=== PATIENT | male | born 1995 | race Caucasian/White ===

== ENCOUNTER 2020-10-31 19:11 | Emergency (ER) | payer OTHER, SELFPAY ==
[2020-10-31] MEDS ORDERED: Lidocaine 2% 20 ml MDV ONE (19:43)
[2020-10-31] MEDS ORDERED: Boostrix 0.5 ML (Tdap) VIAL ONE (19:43)
[2020-10-31] MEDS ORDERED: Clindamycin 150 MG CAP ONE (20:35)
== END 2020-10-31 20:43 | disposition home or self-care (01) ==
LOC: MADERS 19:11
DX: S06.0X0A Concussion without loss of consciousness, initial encounter (principal); S01.111A Laceration without foreign body of right eyelid and periocular area, initial encounter; S40.811A Abrasion of right upper arm, initial encounter; F17.210 Nicotine dependence, cigarettes, uncomplicated; V89.2XXA Person injured in unspecified motor-vehicle accident, traffic, initial encounter
CPT/HCPCS: 12013; 90471; 90715